=== PATIENT | male | born 1950 | race Caucasian/White ===

== ENCOUNTER → 2018-01-06 | Outpatient (CLI) | payer MEDICARE | END | disposition home or self-care (01) | LOC: RAH 10:30 → EDSEX 10:30 | PROVIDERS: ATTEND Internal Medicine Critical Care Medicine | DX: M47.892 Other spondylosis, cervical region (principal) | CPT/HCPCS: 72040 ==

== ENCOUNTER → 2018-02-07 | Outpatient (CLI) | payer MEDICARE | END | disposition home or self-care (01) | LOC: RAH 07:12 | PROVIDERS: ATTEND Physician Assistant Medical | DX: M50.222 Other cervical disc displacement at C5-C6 level (principal); M48.02 Spinal stenosis, cervical region; M47.892 Other spondylosis, cervical region | CPT/HCPCS: 72141 ==